=== PATIENT | female | born 1980 ===

== ENCOUNTER 2017-09-19 20:47 | Inpatient (IN) | payer OTHER ==
[~2017-09-19] VITALS: Ht 154.9 cm; Wt 77.1 kg
== END 2017-09-28 18:09 | disposition home or self-care (01) | DRG 419 ==
LOC: ER 20:47 → SURH 09-20 07:55
PROVIDERS: Surgery
PROC: BF37ZZZ Magnetic Resonance Imaging (MRI) of Pancreas (ICD-10-PCS; 2017-09-20)
PROC: 0FJB8ZZ Inspection of Hepatobiliary Duct, Via Natural or Artificial Opening Endoscopic (ICD-10-PCS; 2017-09-24)
PROC: 0WQF4ZZ Repair Abdominal Wall, Percutaneous Endoscopic Approach (ICD-10-PCS; 2017-09-25)
PROC: 0W9G40Z Drainage of Peritoneal Cavity with Drainage Device, Percutaneous Endoscopic Approach (ICD-10-PCS; 2017-09-25)
PROC: 0FT44ZZ Resection of Gallbladder, Percutaneous Endoscopic Approach (ICD-10-PCS; principal; 2017-09-25 14:15)
DX: K80.64 Calculus of gallbladder and bile duct with chronic cholecystitis without obstruction (principal); K29.00 Acute gastritis without bleeding; K42.9 Umbilical hernia without obstruction or gangrene

== ENCOUNTER 2017-09-29 14:32 | Inpatient (IN) | payer OTHER ==
[2017-09-30] MEDS ORDERED: CIPRO XR 500 M500 MG PO (09:51)
== END 2017-09-30 11:05 | disposition home or self-care (01) | DRG 395 ==
LOC: SURH 14:32
DX: K91.86 Retained cholelithiasis following cholecystectomy (principal); K29.70 Gastritis, unspecified, without bleeding

== ENCOUNTER 2018-06-02 07:00 | Inpatient (IN) | payer OTHER ==
[~2018-06-02 07:00] MED LIST: CIPRO XR 500 M500 MG PO
== END 2018-06-05 08:00 | disposition home or self-care (01) | DRG 819 ==
LOC: O/R 07:00 → CIR.AMB 17:33 → EDSTATUS 18:00 → CIR.AMB 18:00 → O/R 06-03 16:04 → OB/GYN 06-03 16:04 → CIR.AMB 06-03 16:04 → O/R 06-03 16:40 → OB/GYN 06-03 16:40 → SEC-K 06-03 21:28 → OB/GYN 06-03 21:28 → SEC-K 06-03 21:30 → OB/GYN 06-03 21:30 → O/R 06-05 08:00 → OB/GYN 06-05 08:07
PROC: 0UT00ZZ Resection of Right Ovary, Open Approach (ICD-10-PCS; principal; 2018-06-03)
PROC: 0UT50ZZ Resection of Right Fallopian Tube, Open Approach (ICD-10-PCS; 2018-06-03)
PROC: 10T20ZZ Resection of Products of Conception, Ectopic, Open Approach (ICD-10-PCS; 2018-06-03)
DX: O00.201 Right ovarian pregnancy without intrauterine pregnancy (principal)

== ENCOUNTER 2018-10-27 13:46 | Emergency (ER) | payer OTHER ==
[~2018-10-27] VITALS: Ht 157.5 cm; Wt 69.4 kg
[2018-10-27] MEDS ORDERED: ZANTAC300 MG (14:03)
== END 2018-10-27 18:11 | disposition home or self-care (01) ==
LOC: ER 13:46
DX: R06.02 Shortness of breath (principal); F06.4 Anxiety disorder due to known physiological condition